=== PATIENT | female | born 1950 | race Asian ===

== ENCOUNTER → 2018-06-23 | Day surgery (SDC) | payer OTHER ==
[2018-06-16 10:24] LABS: BASOPHILS % 0.6 % (0.0-1.0); EOSINOPHILS # (AUTO) 0.1 (0.0-0.4); HEMATOCRIT 45.5 % (34.2-44.1); LYMPHOCYTES # (AUTO) 1.8 (1.0-3.2); MEAN CORPUSCULAR HEMOGLOBIN 31.3 pg (28-32); MEAN CORPUSCULAR VOLUME 94.8 fL (81-99); MONOCYTES # (AUTO) 0.3 (0.2-0.8); MONOCYTES % 5.9 % (4.4-11.3); NEUTROPHILS # (AUTO) 2.7 (2.1-6.9); NEUTROPHILS % 55.3 % (38.7-80.0); PLATELET COUNT 250 x10e3/uL (140-360); RED CELL DISTRIBUTION WIDTH 12.8 % (11.7-14.4)
--- NOTE | 2018-06-16 14:50 | Diagnostic Imaging Report ---
PROCEDURE: X-RAY CHEST, TWO VIEWS COMPARISON: None. INDICATIONS: Preoperative for a cystoscopy. FINDINGS: LUNGS: No consolidations or edema. PLEURA: No effusions or pneumothorax. HEART \T\ MEDIASTINUM: The heart is within normal size-limits. Calcification and tortuosity of the aorta. BONES \T\ SOFT TISSUES: No acute findings. CONCLUSION: No acute thoracic abnormality. Brandin Mendoza D.O. Dictated by: Brandin Mendoza D.O. on 06/16/2018 at 10:42 Electronically approved by: Brandin Mendoza D.O. on 06/16/2018 at 13:20
[~2018-06-23] MED LIST: BUPIVACAINE 0.25%/EPI 30ML SDV INJ ONE; CEFAZOLIN SOD 1 GM VIAL ONE; DEXAMETHASONE SOD PHOS INJ 4 MG/ML VIAL ONE; EPHEDRINE SULFATE INJ 50 MG/10 ML SYR ONE; ESTROGENS CONJUGATED VAGINAL CR 45 GM TUBE PV ONE; FENTANYL CITRATE/PF 100MCG/2 ML INJ ONE; LEVOTHYROXINE75 MCG PO; LIDOCAINE HCL 2% LOCAL INJ 5 ML SDV VIAL INJ ONE; LUBRICANT EYE D15 ML OP; MIDAZOLAM HCL 2 MG/2 ML VIAL ONE; NALOXONE HCL INJ 0.4 MG/ML AMP ONE; ONDANSETRON HCL INJ 2 MG/ML VIAL ONE; PRAMIPEXOLE DIHY1 MG PO; PROPOFOL IV EMULSION 10 MG/ML 20 ML VIAL ONE; SEVOFLURANE INHAL SOLN 250 ML PEN BTL ONE
[2018-06-23 09:40] VITALS: BP 136/71
--- NOTE | 2018-06-23 12:01 | Operative Report ---
DATE OF PROCEDURE: PREOPERATIVE DIAGNOSIS: Genuine stress incontinence. POSTOPERATIVE DIAGNOSIS: Genuine stress incontinence. PROCEDURE: Transobturator tape and cystoscopy. COMPLICATIONS: None. ESTIMATED BLOOD LOSS: Minimal. DESCRIPTION OF PROCEDURE: The patient was taken to the OR and general anesthesia was placed. She was prepped and draped in the normal sterile fashion and placed in dorsal lithotomy position after examination under anesthesia. Ulrich catheter was placed inside the bladder. Balloon was inflated with 10 mL of saline and two points were made on each side of the pelvis at the level of the clitoris and the intercrural line. Midurethral subvaginal tissue was injected with Marcaine with epinephrine 0.25%, 20 mL and vaginal skin incision was made at the level of the mid urethra with a scalpel. Subvaginal tissue dissected off the urethra using Metzenbaum scissors towards the inferior pubic ramus on both sides. Entry points were made on each side of the pelvis with scalpel and the Obtryx trocar was passed through the entry points and guided with a finger inside the vaginal incision today. Outside of the vagina, the sling was threaded on the curved objects trocar and the trocar was removed. The same was repeated on the other side. The sling was laid down flat at the level of the midurethra. Cystoscopy was performed and showed normal bladder and urethra. The plastic cover over the sling was removed. Excess sling was trimmed off at the entry point. The vagina was closed with Vicryl 2-0 and the entry points were approximated using Dermabond. The patient tolerated the procedure well. Lap, instrument, and needle counts were correct x2 at the end of the procedure. Job#: [id number]
== END | disposition home or self-care (01) ==
LOC: OR 05:08
PROVIDERS: ATTEND Obstetrics & Gynecology
DX: N39.3 Stress incontinence (female) (male) (principal); E03.9 Hypothyroidism, unspecified; H04.129 Dry eye syndrome of unspecified lacrimal gland; Z01.810 Encounter for preprocedural cardiovascular examination; Z01.812 Encounter for preprocedural laboratory examination; Z01.818 Encounter for other preprocedural examination
CPT/HCPCS: 36415; 57288; 71046; 85025; 93005; J0690; J1100; J2001; J2250; J2310; J2405